=== PATIENT | male | born 1990 ===

== ENCOUNTER → 2024-01-09 | Outpatient (CLI) | payer BC | END | disposition home or self-care (01) | LOC: LAB 14:50 → LAB SHORT 14:50 | DX: Z48.02 Encounter for removal of sutures (principal); L08.9 Local infection of the skin and subcutaneous tissue, unspecified; T81.31XA Disruption of external operation (surgical) wound, not elsewhere classified, initial encounter | CPT/HCPCS: 87070; 87205 ==

== ENCOUNTER → 2024-07-13 | Outpatient (CLI) | payer BC | LOC: LAB SHORT 09:55 → LAB 09:55 | DX: L08.9 Local infection of the skin and subcutaneous tissue, unspecified (principal); S21.209A Unspecified open wound of unspecified back wall of thorax without penetration into thoracic cavity, initial encounter | CPT/HCPCS: 87070; 87205 ==